=== PATIENT | male | born 1970 | race Asian ===

== ENCOUNTER 2021-02-22 14:21 | Emergency (ER) | payer OTHER ==
[~2021-02-22] VITALS: Ht 175.3 cm; Wt 74.8 kg
[2021-02-22 14:33] VITALS: BP 155/80
--- NOTE | 2021-02-22 16:03 | NUR ---
SPOKE WITH PATIENTS SISTER FELICIA TRIMBLE TO RETREIVE FURTHER INFORMATION ON PATIENTS HOME MEDS, STATES SHE IS UNSURE OF MEDS TAKEN.
--- NOTE | 2021-02-22 18:30 | NUR ---
UPON PATIENT REQUEST, PROVIDED WITH ADDRESS HE WAS PICKED UP FROM BY [facility] [place], STATING HE IS GOING TO CALL AN UBER OR TAXI FROM HIS PERSONAL PHONE TO PICK HIM UP AND TAKE HIM BACK TO HIS VEHICLE. PATIENT ALSO PROVIDED WITH [employer] PHONE NUMBER, PATIENT WAS EXAMINED AND PUT UP FOR D/C BY KATARZYNA KELLEY.
--- NOTE | 2021-02-22 18:39 | NUR ---
NO NURSING INTERVENTIONS PROVIDED
[2021-02-22 18:40] VITALS: BP 110/76
--- NOTE | 2021-02-22 18:40 | NUR ---
Patient discharged with v/s stable. Written and verbal after care instructions given and explained. Patient verbalized understanding. Ambulatory with steady gait. All questions addressed prior to discharge. Advised to follow up with PMD.
== END 2021-02-22 18:40 | disposition home or self-care (01) ==
LOC: MED 14:21
DX: R44.0 Auditory hallucinations (principal); R44.1 Visual hallucinations; F17.210 Nicotine dependence, cigarettes, uncomplicated
CPT/HCPCS: 99283